=== PATIENT | female | born 1980 | race Hispanic/Latino ===

== ENCOUNTER 2023-03-06 21:16 | Emergency (ER) | payer OTHER ==
[~2023-03-06] VITALS: Ht 165.1 cm; Wt 84.4 kg
[2023-03-06] MEDS ORDERED: TRAMADOL HCL50 MG PO (23:19)
[2023-03-06 23:49] VITALS: BP 144/88
== END 2023-03-06 23:50 | disposition home or self-care (01) ==
LOC: ED 21:16
DX: S62.613A Displaced fracture of proximal phalanx of left middle finger, initial encounter for closed fracture (principal); W22.8XXA Striking against or struck by other objects, initial encounter
CPT/HCPCS: 73140; 99283-25; A9270